=== PATIENT | male | born 1985 | race Two or more races ===

== ENCOUNTER 2023-10-01 18:49 | Emergency (ER) | payer MEDICAID, OTHER ==
[~2023-10-01] VITALS: Ht 172.7 cm; Wt 88.9 kg
[2023-10-01 19:13] VITALS: BP 144/93; PULSE 97; RESP 18; O2SAT 99
== END 2023-10-01 22:21 | disposition home or self-care (01) ==
LOC: ER 18:49
DX: S00.03XA Contusion of scalp, initial encounter (principal); W22.8XXA Striking against or struck by other objects, initial encounter; Y93.11 Activity, swimming; Y92.89 Other specified places as the place of occurrence of the external cause; Y99.8 Other external cause status

== ENCOUNTER 2023-12-05 18:42 | Emergency (ER) | payer MEDICAID ==
[~2023-12-05] VITALS: Ht 170.2 cm; Wt 89.0 kg
[2023-12-05 18:42] VITALS: BP 137/75; PULSE 135; RESP 20; O2SAT 96
[2023-12-05] MEDS ORDERED: SODIUM CHLORIDE 0.9% 1,000 ML IV ONE (19:00)
[2023-12-05] MEDS ORDERED: ONDANSETRON HCL 4 MG/2 ML VIAL IV ONE (19:00)
[2023-12-05] MEDS ORDERED: MORPHINE SULFATE 4 MG/ML SYR/VIAL IV ONE (19:00)
[2023-12-05 19:16] LABS: Basophils # (auto) 0.2 10 ^3/uL (0-0.2); Basophils % (auto) 1.4 % (0.0-2.0); Eosinophils # (auto) 0 10 ^3/uL (0-0.8); Eosinophils % (auto) 0.1 % (0.0-7.0); Hematocrit 38.7 % (41.0-53.0); Hemoglobin 12.6 g/dL (13.5-17.5); Lymphocytes # (auto) 3.4 10 ^3/uL (0.4-5.4); Lymphocytes % (auto) 26.7 % (10.0-50.0); Mean Corpuscular Hemoglobin 27.7 pg (28.0-32.0); Mean Corpuscular Hgb Conc. 32.7 g/dL (32.0-36.0); Mean Corpuscular Volume 84.7 fL (80.0-100.0); Monocytes # (auto) 1.1 10 ^3/uL (0-1.3); Monocytes % (auto) 8.4 % (0.0-12.0); Neutrophils # (auto) 8.1 10 ^3/uL (1.6-8.6); Neutrophils % (auto) 63.4 % (37.0-80.0); Nucleated Red Blood Cells % 0.1 %; Platelet Count (auto) 327 10^3/uL (140-450); Red Blood Cells 4.56 10^6/uL (4.5-5.90); Red Cell Distribution Width 19.9 % (11.8-14.3); White Blood Cell 12.8 10^3/uL (4.4-10.8)
[2023-12-05 19:32] LABS: Alanine Aminotransferase 28 U/L (7-40); Albumin 4.7 g/dL (3.2-4.8); Alkaline Phosphatase 97 U/L (46-116); Anion Gap 13 (5-15); Aspartate Aminotransferase 33 U/L (13-40); BUN/Creatinine Ratio 7.9 (10.0-20.0); Bilirubin, Total 0.4 mg/dL (0.2-1.0); Blood Urea Nitrogen 7 mg/dL (9-23); Calcium 8.9 mg/dL (8.7-10.4); Carbon Dioxide 24 mmol/L (20-30); Chloride 105 mmol/L (98-107); Glucose 126 mg/dL (74-106); Lipase 34 U/L (12-53); Potassium 3.6 mmol/L (3.5-5.1); Sodium 142 mmol/L (136-145); Total Protein 7.7 g/dL (5.7-8.2)
[2023-12-05] MEDS ORDERED: PANTOPRAZOLE 40 MG/10 ML VIAL INJ IV ONE (20:00)
[2023-12-05 20:05] LABS: Blood Alcohol 377.5 mg/dL (<10)
[2023-12-05 20:11] LABS: Lactic Acid w/Reflex 2.9 mmol/L (0.4-2.0)
== END 2023-12-06 21:07 | disposition left against medical advice (07) ==
LOC: ER 18:42
DX: K62.5 Hemorrhage of anus and rectum (principal); F10.129 Alcohol abuse with intoxication, unspecified; R10.32 Left lower quadrant pain
CPT/HCPCS: 36415; 80053; 80320; 83605; 83690; 85025